=== PATIENT | male | born 1980 | race African-American/Black ===

== ENCOUNTER 2022-05-03 06:18 | Emergency (ER) | payer OTHER ==
[~2022-05-03] VITALS: Ht 172.7 cm; Wt 108.9 kg
[2022-05-03] MEDS ORDERED: CEFDINIR300 MG PO (07:50)
[2022-05-03] MEDS ORDERED: PREDNISONE20 MG PO (07:50)
[2022-05-03] MEDS ORDERED: IBUPROFEN200 MG PO (07:50)
[2022-05-03] MEDS ORDERED: ACETAMINOPHEN 325 MG TAB PO ONE (08:00)
[2022-05-03] MEDS ORDERED: PREDNISONE 20 MG TAB PO ONE (08:00)
[2022-05-03] MEDS ORDERED: CEFTRIAXONE 1 GM VIAL IM ONE (08:00)
[2022-05-03] MEDS ORDERED: ACETAMINOPHEN 325 MG TAB ONE (08:09)
[2022-05-03] MEDS ORDERED: PREDNISONE 20 MG TAB ONE (08:09)
[2022-05-03] MEDS ORDERED: CEFTRIAXONE 1 GM VIAL ONE (08:09)
== END 2022-05-03 08:07 | disposition home or self-care (01) ==
LOC: FSED 07:10
DX: R05.9 Cough, unspecified (principal); J02.0 Streptococcal pharyngitis; G47.33 Obstructive sleep apnea (adult) (pediatric); R53.81 Other malaise
CPT/HCPCS: 83518; 87400; 96372; 99283; J0696; J7512

== ENCOUNTER 2023-10-02 10:14 | Emergency (ER) | payer OTHER ==
[~2023-10-02] VITALS: Ht 172.7 cm; Wt 124.9 kg
[~2023-10-02 10:14] MED LIST: AMLODIPINE BESYL5 MG PO; CEFDINIR300 MG PO; HYDROCODON-ACE1 EAC9; IBUPROFEN200 MG PO; PANTOPRAZOLE SO40 MG PO; PREDNISONE20 MG PO
[2023-10-02] MEDS ORDERED: AMOX TR-K CLV1 EAC2 PO (11:34)
[2023-10-02] MEDS ORDERED: BUTALB-ACETAMI1 EAC2 PO (11:36)
[2023-10-02] MEDS: AMOXICILLIN/CLAVULANATE K 875 MG TAB PO STA (11:38)
[2023-10-02] MEDS ORDERED: BUTALB-ACETAMI1 EAC3 PO (11:38)
[2023-10-02] MEDS: DEXAMETHASONE SOD PHOS INJ 4 MG/ML SDV IM ONE (11:38)
[2023-10-02] MEDS: ACETAMINOPHEN 325 MG TAB PO ONE (11:39)
[2023-10-02] MEDS ORDERED: FIORICET 50-301 EACH PO (11:44)
[2023-10-02 11:59] VITALS: PULSE 78; RESP 20; TEMP 100.2; O2SAT 97
== END 2023-10-02 11:59 | disposition home or self-care (01) ==
LOC: FSED 11:08
DX: R50.9 Fever, unspecified (principal); J01.90 Acute sinusitis, unspecified; R09.81 Nasal congestion; I10 Essential (primary) hypertension; R51.9 Headache, unspecified; Z11.52 Encounter for screening for COVID-19
CPT/HCPCS: 0223U; 87400; 96372; 99283; J1100